=== PATIENT | female | born 1990 | race Caucasian/White ===

== ENCOUNTER 2017-12-28 14:44 | Observation (INO) ==
[2017-12-28] MEDS ORDERED: 0.9 % Sodium Chloride 1,000 ML IVC ONE (15:27)
[2017-12-28] MEDS ORDERED: Ondansetron 4 MG/2 ML VIAL IVP ONE (15:27)
[2017-12-28] MEDS ORDERED: *HR* FentaNYL (PF) 100 MCG/2 ML VIAL IVP ONE (16:07)
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
[2017-12-28] MEDS ORDERED: MetroNIDAZOLE 500 MG/100 ML 500 MG/100 ML BAG IVPB ONE (16:18)
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
[2017-12-28 16:29] LABS: Basophils % 0.3 %; Eosinophils # 0.1 K/mcL (0.0-0.6); Eosinophils % 0.9 %; Hematocrit 44.7 % (35.3-44.9); Immature Granulocytes % 0.3 % (0-4); Lymphocytes # 1.5 K/mcL (0.6-4.6); Lymphocytes % 10.4 %; Mean Corpuscular HGB Conc 33.6 g/dL (31.6-35.5); Mean Corpuscular Hemoglobin 29.5 pg (28.0-33.3); Mean Corpuscular Volume 87.8 fL (83.0-100.0); Mean Platelet Volume 10.5 fL (9.4-12.4); Monocytes # 1.1 K/mcL (0.0-1.3); Monocytes % 7.8 %; Neutrophils # 11.7 K/mcL (1.6-8.9); Platelet Count 187 K/mcL (140-400); Red Blood Count 5.09 M/mcL (3.82-4.97); Red Cell Distribution Width 12.5 % (11.5-14.5); Segmented Neutrophils % 80.3 %
[2017-12-28 16:45] LABS: Alanine Aminotransferase 11 Units/L (7-52); Albumin 3.7 g/dL (3.5-5.7); Albumin/Globulin Ratio 1.5 (1.1-2.2); Alkaline Phosphatase 59 Units/L (34-104); Amylase 11 Units/L (29-103); Aspartate Amino Transferase 11 Units/L (13-39); BUN/Creatinine Ratio 12 (6-26); Bilirubin,Direct 0.1 mg/dL (0.0-0.2); Bilirubin,Indirect 0.3 mg/dL (0.0-1.2); Bilirubin,Total 0.4 mg/dL (0.3-1.0); Blood Urea Nitrogen 8 mg/dL (6-20); Calcium 8.8 mg/dL (8.6-10.3); Carbon Dioxide 23 mEq/L (23-29); Chloride 103 mEq/L (98-107); Globulin 2.5 g/dL (2.4-3.5); Glucose 100 mg/dL (70-105); Lipase 7 Units/L (11-82); Osmolality,Calculated 282 (280-300); Potassium 3.5 mEq/L (3.5-5.1); Sodium 137 mEq/L (136-145); Total Protein 6.2 g/dL (6.4-8.9); eGFR For Non-African Americans > 60 (> 60)
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
[2017-12-28] MEDS ORDERED: Naloxone 0.4 MG/ML INJ IVP PRN (19:31)
[2017-12-28] MEDS ORDERED: 0.9 % Sodium Chloride 1,000 ML ONE (20:14)
[2017-12-28] MEDS: valACYclovir 500 MG TABLET PO SCH (20:21)
[2017-12-28] MEDS: 0.9 % Sodium Chloride 1,000 ML IVC SCH (23:52)
[2017-12-28] MEDS: MetroNIDAZOLE 500 MG/100 ML 500 MG/100 ML BAG IVPB SCH (23:53)
[2017-12-29] MEDS: 0.9 % Sodium Chloride 1,000 ML IVC SCH ×2 (06:53→19:34)
[2017-12-29 07:06] LABS: Basophils # 0.1 K/mcL (0.0-0.2); Basophils % 0.5 %; Eosinophils # 0.2 K/mcL (0.0-0.6); Eosinophils % 2.2 %; Hematocrit 39.2 % (35.3-44.9); Immature Granulocytes % 0.4 % (0-4); Lymphocytes # 2.1 K/mcL (0.6-4.6); Lymphocytes % 19.2 %; Mean Corpuscular HGB Conc 33.4 g/dL (31.6-35.5); Mean Corpuscular Hemoglobin 29.8 pg (28.0-33.3); Mean Corpuscular Volume 89.1 fL (83.0-100.0); Mean Platelet Volume 10.8 fL (9.4-12.4); Monocytes # 0.9 K/mcL (0.0-1.3); Neutrophils # 7.4 K/mcL (1.6-8.9); Platelet Count 157 K/mcL (140-400); Red Cell Distribution Width 12.5 % (11.5-14.5); Segmented Neutrophils % 69.7 %
[2017-12-29 07:27] LABS: BUN/Creatinine Ratio 10 (6-26); Blood Urea Nitrogen 6 mg/dL (6-20); Carbon Dioxide 23 mEq/L (23-29); Chloride 107 mEq/L (98-107); Glucose 88 mg/dL (70-105); Osmolality,Calculated 281 (280-300); Potassium 3.4 mEq/L (3.5-5.1); Sodium 137 mEq/L (136-145); eGFR For Non-African Americans > 60 (> 60)
[2017-12-29 07:32] LABS: Hemoglobin 13.1 g/dL (11.5-15.4)
[2017-12-29] MEDS: MetroNIDAZOLE 500 MG/100 ML 500 MG/100 ML BAG IVPB SCH ×2 (09:17→16:36)
[2017-12-29] MEDS: valACYclovir 500 MG TABLET PO SCH (09:17)
--- NOTE | 2017-12-29 15:05 | Internal Med Progress Note ---
Hospitalist Progress Note - Encounter Date of Encounter: 12/29/17 Time of Encounter: 10:00 - Subjective Interval History: continued diarrhea described as blood and yellow mucus. overall improving abd pain with holding of oral intake. Cramping lower quadrant pain. Denies fevers, chills, fatigue, sob, presyncope or syncope. No family hx of IBD, no prior episodes of gi bleeding. No nausea or emesis. - Exam Vitals: Temp Pulse Resp BP Pulse Ox 98.1 F 60 14 113/74 96 12/29/17 13:59 12/29/17 13:59 12/29/17 13:59 12/29/17 13:59 12/29/17 13:59 Exam: General: awake, alert, appears stated age HEENT:EOM, pupils equal, round, moist mucus membranes, clear oropharynx Cardiovascular:regular rate and rhythm, normal S1 & S2, no rubs, murmurs or gallops. Lungs:Normal breath sounds, no wheezes, or crackles. Normal respiratory effort Abdomen:Soft, tender LLQ, no guarding, non-distended, no rigidity, + bowel sounds Neurological: AAOx3, CN grossly intact Skin:Normal color, no rash, no pallor, no jaundice - Assessment and Plan (1) Colitis Current Visit: Yes Status: Acute Assessment and Plan: Patient with a 5 day history of abdominal pain in a one-day history of bloody diarrhea found to have diffuse colitis sparing the sigmoid colon on abdominal CT done on 12/26/17; patient with leukocytosis but afebrile. Infectious etiology vs inflammatory bowel disease first occurance -stool studies pending:-cryptococcus negative, C diff negative, O&P pending bl cxs pending -continue IV Cipro/Flagyl -monitor hgb -IVFs -npo -GI consulted and case discussed, will fu recs (2) HSV-2 infection Current Visit: Yes Status: Chronic Assessment and Plan: Continue home dose of Valtrex DVT Prophylaxis: scds pnly gven active bleeding - Time Spent with Patient Total time spent is greater than 50% in coordination of care (as documented) at patient's floor/unit and/or counseling patient: Greater than 35 minutes Plan of Care Discussed with: patient Internal Medicine: Result - Labs CBC & Chem 7: 12/29/17 06:41 12/29/17 06:41 Labs: Short CBC 12/29/17 Range/Units 06:41 WBC 10.7 (4.3-11.1) K/mcL Hgb 13.1 D (11.5-15.4) g/dL Hct 39.2 (35.3-44.9) % Plt Count 157 (140-400) K/mcL Neutrophils # 7.4 (1.6-8.9) K/mcL BMP 12/29/17 06:41 Sodium 137 Potassium 3.4 L Chloride 107 Carbon Dioxide 23 BUN 6 Creatinine 0.60 Glucose 88 Calcium 8.0 L - VTE Reasons for not Prescribing Prophylaxis: Treatment not Indicated - Low risk for VTE Consult Discharge Plan - Plan Referrals: Sravan Hurst MD [Primary Care Provider] -
[2017-12-29] MEDS ORDERED: Acetaminophen 325 MG TABLET PO PRN (18:44)
[2017-12-30] MEDS: MetroNIDAZOLE 500 MG/100 ML 500 MG/100 ML BAG IVPB SCH ×3 (00:05→16:00)
[2017-12-30 04:24] LABS: Basophils # 0.1 K/mcL (0.0-0.2); Basophils % 0.7 %; Eosinophils # 0.2 K/mcL (0.0-0.6); Eosinophils % 2.3 %; Hematocrit 38.3 % (35.3-44.9); Hemoglobin 12.8 g/dL (11.5-15.4); Immature Granulocytes % 0.3 % (0-4); Lymphocytes # 1.7 K/mcL (0.6-4.6); Lymphocytes % 18.1 %; Mean Corpuscular HGB Conc 33.4 g/dL (31.6-35.5); Mean Corpuscular Hemoglobin 29.8 pg (28.0-33.3); Mean Corpuscular Volume 89.1 fL (83.0-100.0); Mean Platelet Volume 10.4 fL (9.4-12.4); Monocytes # 0.7 K/mcL (0.0-1.3); Monocytes % 7.2 %; Platelet Count 171 K/mcL (140-400); Red Cell Distribution Width 12.4 % (11.5-14.5); Segmented Neutrophils % 71.4 %
[2017-12-30 04:28] LABS: Neutrophils # 6.6 K/mcL (1.6-8.9)
[2017-12-30 04:50] LABS: Alanine Aminotransferase 8 Units/L (7-52); Albumin/Globulin Ratio 1.6 (1.1-2.2); Alkaline Phosphatase 45 Units/L (34-104); Aspartate Amino Transferase 10 Units/L (13-39); BUN/Creatinine Ratio 12 (6-26); Bilirubin,Total 0.3 mg/dL (0.3-1.0); Blood Urea Nitrogen 7 mg/dL (6-20); Carbon Dioxide 22 mEq/L (23-29); Chloride 108 mEq/L (98-107); Globulin 1.9 g/dL (2.4-3.5); Glucose 74 mg/dL (70-105); Osmolality,Calculated 281 (280-300); Potassium 3.6 mEq/L (3.5-5.1); Sodium 137 mEq/L (136-145); Total Protein 4.9 g/dL (6.4-8.9); eGFR For Non-African Americans > 60 (> 60)
[2017-12-30 04:53] LABS: Platelet Estimate Normal (Normal); Reactive Lymphocytes Present (Not Present)
[2017-12-30] MEDS: valACYclovir 500 MG TABLET PO SCH (08:11)
--- NOTE | 2017-12-30 08:17 | Internal Med Progress Note ---
Hospitalist Progress Note - Encounter Date of Encounter: 12/30/17 Time of Encounter: 10:00 - Subjective Interval History: diarrhea is slowing down, 2-3 episodes overnight with blood. diffuse abd cramping pain. + nausea with each dose of flagyl and metallic taste in mouth. not alleviated with zofran. feeling very anxious with everything going on and requesting medication. mother at bedside. - Exam Vitals: Temp Pulse Resp BP Pulse Ox 98.3 F 73 15 133/77 93 12/30/17 06:42 12/30/17 06:42 12/30/17 06:42 12/30/17 06:42 12/30/17 06:42 Exam: General: awake, alert, appears stated age HEENT:EOM, pupils equal, round, moist mucus membranes Cardiovascular:regular rate and rhythm, normal S1 & S2, no rubs, murmurs or gallops. Lungs:Normal breath sounds, no wheezes, or crackles. Normal respiratory effort Abdomen:Soft, tdiffusely tender no guarding, non-distended, no rigidity, + bowel sounds Neurological: AAOx3, CN grossly intact Skin:Normal color, no rash, no pallor, no jaundice - Assessment and Plan (1) Colitis Current Visit: Yes Status: Acute Assessment and Plan: Patient with a 5 day history of abdominal pain in a one-day history of bloody diarrhea found to have diffuse colitis sparing the sigmoid colon on abdominal CT done on 12/26/17; patient with leukocytosis but afebrile. Infectious etiology vs inflammatory bowel disease first occurance -stool studies pending:-cryptococcus negative, C diff negative, O&P pending bl cxs pending -continue IV Cipro/Flagyl -monitor hgb -IVFs -npo -GI consulted and case discussed, will fu recs, eval pending (2) HSV-2 infection Current Visit: Yes Status: Chronic Assessment and Plan: Continue home dose of Valtrex DVT Prophylaxis: scds only gven active bleeding - Time Spent with Patient Total time spent is greater than 50% in coordination of care (as documented) at patient's floor/unit and/or counseling patient: Greater than 35 minutes Plan of Care Discussed with: patient Internal Medicine: Result - Labs CBC & Chem 7: 12/30/17 04:07 12/30/17 04:07 Labs: Short CBC 12/30/17 Range/Units 04:07 WBC 9.2 (4.3-11.1) K/mcL Hgb 12.8 (11.5-15.4) g/dL Hct 38.3 (35.3-44.9) % Plt Count 171 (140-400) K/mcL Neutrophils # 6.6 (1.6-8.9) K/mcL BMP 12/30/17 04:07 Sodium 137 Potassium 3.6 Chloride 108 H Carbon Dioxide 22 L BUN 7 Creatinine 0.57 L Glucose 74 Calcium 8.0 L Liver Function 12/30/17 Range/Units 04:07 Total Bilirubin 0.3 (0.3-1.0) mg/dL AST 10 L (13-39) Units/L ALT 8 (7-52) Units/L Alkaline Phosphatase 45 (34-104) Units/L Albumin 3.0 L (3.5-5.7) g/dL - VTE Reasons for not Prescribing Prophylaxis: Treatment not Indicated - Low risk for VTE Consult Discharge Plan - Plan Referrals: Sravan Hurst MD [Primary Care Provider] -
[2017-12-30] MEDS ORDERED: *HR* OxyCODONE/APAP 5/325 TABLET PO PRN (11:40)
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
[2017-12-30] MEDS: 0.9 % Sodium Chloride 1,000 ML IVC SCH (12:39)
[2017-12-30] MEDS: *HR* Promethazine 25 MG/ML VIAL IVP PRN ×2 (15:28→23:46)
[2017-12-31] MEDS: MetroNIDAZOLE 500 MG/100 ML 500 MG/100 ML BAG IVPB SCH ×4 (00:36→23:56)
[2017-12-31] MEDS: 0.9 % Sodium Chloride 1,000 ML IVC SCH ×4 (00:37→19:00)
[2017-12-31] MEDS: *HR* Promethazine 25 MG/ML VIAL IVP PRN ×3 (08:20→23:56)
[2017-12-31] MEDS: valACYclovir 500 MG TABLET PO SCH (08:26)
[2017-12-31 10:05] LABS: Hematocrit 35.6 % (35.3-44.9); Hemoglobin 12.1 g/dL (11.5-15.4); Mean Corpuscular Hemoglobin 29.9 pg (28.0-33.3); Mean Corpuscular Volume 87.9 fL (83.0-100.0); Mean Platelet Volume 10.3 fL (9.4-12.4); Platelet Count 181 K/mcL (140-400); Red Blood Count 4.05 M/mcL (3.82-4.97); Red Cell Distribution Width 12.3 % (11.5-14.5)
[2017-12-31 10:24] LABS: Alanine Aminotransferase 9 Units/L (7-52); Albumin 2.9 g/dL (3.5-5.7); Albumin/Globulin Ratio 1.5 (1.1-2.2); Alkaline Phosphatase 41 Units/L (34-104); Aspartate Amino Transferase 14 Units/L (13-39); BUN/Creatinine Ratio 11 (6-26); Bilirubin,Total 0.4 mg/dL (0.3-1.0); Blood Urea Nitrogen 6 mg/dL (6-20); Calcium 8.1 mg/dL (8.6-10.3); Carbon Dioxide 26 mEq/L (23-29); Chloride 109 mEq/L (98-107); Glucose 90 mg/dL (70-105); Magnesium 1.7 mg/dL (1.6-2.6); Osmolality,Calculated 283 (280-300); Potassium 3.4 mEq/L (3.5-5.1); Sodium 138 mEq/L (136-145); Total Protein 4.9 g/dL (6.4-8.9); eGFR For Non-African Americans > 60 (> 60)
[2017-12-31 10:29] LABS: Lymphocytes # 2.6 K/mcL (0.6-4.6); Monocytes # 0.2 K/mcL (0.0-1.3); Neutrophils # 4.5 K/mcL (1.6-8.9)
[2017-12-31 10:31] LABS: Platelet Estimate Normal (Normal); Reactive Lymphocytes Present (Not Present)
--- NOTE | 2017-12-31 19:36 | Internal Med Progress Note ---
Hospitalist Progress Note - Encounter Date of Encounter: 12/31/17 Time of Encounter: 09:45 - Subjective Interval History: diarrhea continues to decrease, no blood in bms overnight. cont severe nausea, anorexia and prema of eating. encouraged aagain that she needs to have oral intake prior to dc. will try to increase intake today, denies fever, chills - Exam Vitals: Temp Pulse Resp BP Pulse Ox 98.1 F 63 14 119/74 98 12/31/17 18:45 12/31/17 18:45 12/31/17 18:45 12/31/17 18:45 12/31/17 18:45 Exam: General: awake, alert, appears stated age HEENT:pupils equal, round, moist mucus membranes Cardiovascular:regular rate and rhythm, normal S1 & S2 Lungs:Normal breath sounds, no wheezes, or crackles. Normal respiratory effort Abdomen:Soft, diffusely tender no guarding, non-distended, no rigidity, + bowel sounds Neurological: AAOx3, CN grossly intact Skin:Normal color, no rash, no pallor, no jaundice - Assessment and Plan (1) Colitis Current Visit: Yes Status: Acute Assessment and Plan: Patient with a 5 day history of abdominal pain in a one-day history of bloody diarrhea found to have diffuse colitis sparing the sigmoid colon on abdominal CT done on 12/26/17; patient with leukocytosis but afebrile. Infectious etiology vs inflammatory bowel disease first occurance -stool studies pending:-cryptococcus negative, C diff negative, O&P pending--d/ w micro lab is send out and may not results for total of 3-6 days bl cxs ngtd -continue IV Cipro/Flagyl -monitor hgb -IVFs -advance diet, pt is not eating or drinking and needs to prior to dc -GI consulted and case discussed, will fu recs, eval pending (2) HSV-2 infection Current Visit: Yes Status: Chronic Assessment and Plan: Continue home dose of Valtrex DVT Prophylaxis: scds only gven active bleeding - Time Spent with Patient Total time spent is greater than 50% in coordination of care (as documented) at patient's floor/unit and/or counseling patient: Greater than 35 minutes Plan of Care Discussed with: patient Internal Medicine: Result - Labs CBC & Chem 7: 12/31/17 09:37 12/31/17 09:37 Labs: Short CBC 12/31/17 Range/Units 09:37 WBC 7.3 (4.3-11.1) K/mcL Hgb 12.1 (11.5-15.4) g/dL Hct 35.6 (35.3-44.9) % Plt Count 181 (140-400) K/mcL Neutrophils # 4.5 (1.6-8.9) K/mcL BMP 12/31/17 09:37 Sodium 138 Potassium 3.4 L Chloride 109 H Carbon Dioxide 26 BUN 6 Creatinine 0.57 L Glucose 90 Calcium 8.1 L Liver Function 12/31/17 Range/Units 09:37 Total Bilirubin 0.4 (0.3-1.0) mg/dL AST 14 (13-39) Units/L ALT 9 (7-52) Units/L Alkaline Phosphatase 41 (34-104) Units/L Albumin 2.9 L (3.5-5.7) g/dL - VTE Reasons for not Prescribing Prophylaxis: Treatment not Indicated - Low risk for VTE Documentation of Mechanical Device: Intermittent pneumatic compression device Consult Discharge Plan - Plan Referrals: Sravan Hurst MD [Primary Care Provider] -
[2018-01-01] MEDS: 0.9 % Sodium Chloride 1,000 ML IVC SCH (05:14)
[2018-01-01 05:18] LABS: BUN/Creatinine Ratio 9 (6-26); Blood Urea Nitrogen 5 mg/dL (6-20); Calcium 8.2 mg/dL (8.6-10.3); Carbon Dioxide 23 mEq/L (23-29); Chloride 108 mEq/L (98-107); Glucose 82 mg/dL (70-105); Magnesium 1.7 mg/dL (1.6-2.6); Osmolality,Calculated 280 (280-300); Potassium 3.4 mEq/L (3.5-5.1); Sodium 137 mEq/L (136-145); eGFR For Non-African Americans > 60 (> 60)
[2018-01-01] MEDS: *HR* Promethazine 25 MG/ML VIAL IVP PRN (07:37)
[2018-01-01] MEDS ORDERED: Ondansetron ODT 4 MG TAB.RAPDIS SL PRN (08:48)
[2018-01-01] MEDS: MetroNIDAZOLE 500 MG/100 ML 500 MG/100 ML BAG IVPB SCH (09:06)
[2018-01-01] MEDS: valACYclovir 500 MG TABLET PO SCH (09:06)
[2018-01-01 10:30] VITALS: BP 114/72
--- NOTE | 2018-01-01 12:13 | Discharge Summary ---
- NOTES TO OUTPATIENT PROVIDER Notes to Outpatient Provider: She was diagnosed with what GI suspected to be infectious colitis. At time of dc O&P is pending, likely will result next week. This will need followed up. If she requires further GI work up or follow up it was dr Rodriguez whom saw her here. She is discharging with flagyl + cipro and prn anti emetic for nausea she has with flagyl. wbc elevation resolved and no fevers here. No bleeding for last 2 days Date of Encounter: 01/01/18 Time of Encounter: 09:45 - Discharge Diagnosis (1) Colitis Priority: Primary Status: Acute Assessment and Plan: Patient with a 5 day history of abdominal pain and one-day history of bloody diarrhea on presentation found to have diffuse colitis sparing the sigmoid colon on abdominal CT done on 12/26/17; patient with leukocytosis but afebrile. Infectious etiology vs inflammatory bowel disease first occurance -stool studies pbtained this admit include:-cryptococcus negative, C diff negative, O&P pending--d/w micro lab is send out and may not results for total of 3-6 days--fu has been communicated to pcp on dc summary -update to prior documentation, no blood cxs were ever sent as previously noted , given she had no fevers, had already been on abx and leukocytosis resolved, they were not resent -gi followed--rec for tx for bacterial infectious colitis with iv cipro and flagyl--she will complete course po as aoutpt -flagyl has caused her significant nausea with each dose and oral anti emetic rx on dc -hgb stayed stable and at time of dc has not had blood in stool for >48 hrs -IVFs while inpt -increasing diet and now tolerating, she may advance slowly at home on dc as discussed -will follow this up with her pcp and GI as needed outpt (2) HSV-2 infection Priority: Secondary Status: Chronic Assessment and Plan: Continued home dose of Valtrex while here cont to follow wi pcp as needed Hospital course: Ms. Harrison is a 27 year old female who presented with bloody diarrhea and was found to have colitis on CT scan (sparing only the sigmoid). GI was consulted and felt this was infectious bacterial diarrhea as opposed to a first occurance IBD. She was treated with flagyl + cipro with resolution of bleeding and significant improvement in diarrhea. Diet was slowly advanced. Leukocytosis resolved and she remained well appearing and without fever throughout admisison. She was dc to home in stable condition with already scheduled PCP appt with Dr Hurst on 01/04/18 per pt. - Time Spent with Patient Total time spent providing and/or coordinating discharge services: - Discharge Medications Prescriptions: Ondansetron ODT [Zofran ODT] 8 mg SL Q8HR PRN 7 Days #21 tab.rapdis PRN Reason: Nausea And Vomiting Ciprofloxacin [Cipro] 500 mg PO BID 5 Days #10 tablet metroNIDAZOLE [Flagyl] 500 mg PO TID 5 Days #15 tablet Home Medications: valACYclovir [Valtrex] 500 mg PO DAILY 12/28/17 [History] Ciprofloxacin [Cipro] 500 mg PO BID 5 Days #10 tablet 01/01/18 [Rx] Ondansetron ODT [Zofran ODT] 8 mg SL Q8HR PRN 7 Days #21 tab.rapdis 01/01/18 [Rx ] metroNIDAZOLE [Flagyl] 500 mg PO TID 5 Days #15 tablet 01/01/18 [Rx] Allergies/Adverse Reactions: 3 Allergy/AdvReac Type Severity Reaction Status Date / Time No Known Allergies Allergy Verified 12/28/17 16:54 Date of admission: 12/28/17 17:44 Primary care physician: Sravan Hurst MD Consults: 12/29/17 12:31 Consult to Gastroenterology [CONS] Routine Consulting Provider: [facility] Reason for Consult: new onset colitis w/ diarrhea/blood, spares sigmoid, no prior hx, please eval for infectious vs ibd w/u and if need for scope, thank you Call Completed: No Discharging clinician: Ana Laura Augustin - Constitutional Vitals: Temp Pulse Resp BP Pulse Ox 98.5 F 67 14 114/72 95 01/01/18 10:29 01/01/18 10:29 01/01/18 10:29 01/01/18 10:29 01/01/18 10:29 General appearance: Present: A&O X 3, no acute distress Exam: General: awake, alert, appears stated age, well appearing HEENT:pupils equal, round, moist mucus membranes Cardiovascular:regular rate and rhythm, normal S1 & S2 Lungs:Normal breath sounds, no wheezes, or crackles. Normal respiratory effort on room air Abdomen:Soft, non tender, no guarding, non-distended, no rigidity, + normal bowel sounds Skin:Normal color, no rash, no pallor, no jaundice - Patient Status Disposition: Home, Self-Care Condition: Good Functional capacity at discharge: independent ambulation - Discharge Instructions Follow Up With: Sravan Hurst MD [Primary Care Provider] - Additional Instructions: has appt scheduled per pt on 01/04/[address] Hurst - Diet and Activity Activity: resume usual activities as tolerated Diet: advance to your usual diet - VTE Reasons for not Prescribing Prophylaxis: Treatment not Indicated - Low risk for VTE Documentation of Mechanical Device: Intermittent pneumatic compression device
[2018-01-03 11:46] LABS: Ova & Parasite Stain NEGATIVE (Negative)
== END 2018-01-01 14:41 | disposition home or self-care (01) ==
LOC: 3ANU 14:44 → EMEROOARM 14:44 → SUATTDRO 17:44 → 3ANU 19:00
PROVIDERS: ADMIT Student in an Organized Health Care Education/Training Program; ATTEND Internal Medicine